=== PATIENT | male | born 2000 | race Caucasian/White ===

== ENCOUNTER 2022-06-20 17:58 | Emergency (ER) | payer SELFPAY ==
[2022-06-20 19:33] LABS: CORONAVIRUS COVID-19 NAA NEGATIVE (NEGATIVE)
[2022-06-20] MEDS ORDERED: Ondansetron 4 MG Tab.DIS PO ONE ×2 (19:34→21:17)
[2022-06-20 20:17] LABS: INFLUENZA A NAA NEGATIVE (NEGATIVE); INFLUENZA B NAA NEGATIVE (NEGATIVE); RESPIRATORY SYNCYTIAL VIR NAA NEGATIVE (NEGATIVE)
[2022-06-20] MEDS ORDERED: LORazepam 2 MG/ML SDV ONE (20:22)
[2022-06-20] MEDS ORDERED: Dexamethasone 10 MG/ML SDV PO ONE (21:06)
[2022-06-20] MEDS ORDERED: Acetaminophen 325 MG Tab PO ONE (21:26)
== END 2022-06-20 21:39 | disposition home or self-care (01) ==
LOC: MW.ED 17:58
DX: J02.0 Streptococcal pharyngitis (principal); Z20.822 Contact with and (suspected) exposure to COVID-19
CPT/HCPCS: 0241U; 71046; 87651; 99283; A9270; J8540